=== PATIENT | male | born 1970 | race African-American/Black ===

== ENCOUNTER → 2023-09-26 09:24 | Outpatient (REF) | payer OTHER, SELFPAY | LOC: RAD 09:24 | PROVIDERS: ATTENDING PHYSICIAN Internal Medicine; FAMILY PHYSICIAN Internal Medicine; REFERRING PHYSICIAN Internal Medicine | DX: R07.89 Other chest pain (principal) | CPT/HCPCS: 74221 ==

== ENCOUNTER 2024-08-20 14:24 | Emergency (ER) | payer OTHER, SELFPAY ==
[2024-08-20 14:32] VITALS: BP 123/86
[2024-08-20 14:59] LABS: % Basophils 0.5 % (0-2); % Eosinophils 0.3 % (0-6); % Immature Granulocytes 0.2 % (0-0.5); % Lymphocytes 16.9 % (20.5-51.1); % Monocytes 8.3 % (1.7-9.3); % Neutrophils 73.8 % (42.2-75.2); Absolute Monocytes 0.5 10^3/uL (0.1-0.6); Absolute Neutrophils 4.5 10^3/uL (1.4-6.5); Hematocrit 42.7 % (39.0-52.0); Hemoglobin 14.3 g/dL (13.0-18.0); Mean Corp Hgb Conc. 33.5 g/dL (33.0-37.0); Mean Corpuscular Hgb 28.7 pg (27.0-31.0); Mean Corpuscular Volume 85.7 fL (80.0-94.0); Mean Platelet Volume 9.6 fL (7.4-10.4); Nucleated Red Blood Cells % 0 % (-); Platelet Count 179 10^3/uL (130-400); Red Blood Cell Count 4.98 10^6/uL (4.70-6.10); Red Cell Dist. Width 11.9 % (11.5-14.5); White Blood Cell Count 6.1 10^3/uL (4.8-10.8)
[2024-08-20 15:11] LABS: ALT (SGPT) 29 U/L (0-50); AST (SGOT) 29 U/L (17-59); Albumin 4.6 g/dl (3.5-5.0); Alkaline Phosphatase 54 U/L (38-126); Blood Urea Nitrogen 13 mg/dl (9-20); Calcium 8.9 mg/dl (8.4-10.2); Carbon Dioxide 33 mmol/L (22-30); Chloride 97 mmol/L (98-107); Glucose 91 mg/dl (70-99); Potassium 3.9 mmol/L (3.5-5.1); Sodium 136 mmol/L (135-145); Total Bilirubin 0.6 mg/dl (0.2-1.3); eGFR > 60.00
[2024-08-20 15:22] LABS: Troponin I < 0.012 ng/ml
[2024-08-20 15:49] LABS: Lipase 131 U/L (23-300)
--- NOTE | 2024-08-20 18:33 | ED.GENMED ---
History of Present Illness
General
Chief Complaint: Abdominal Symptoms
Source: patient
Exam Limitations: none
Time Seen by Provider: 08/20/24 18:11
Nursing documentation reviewed up to this point in time: agreed with
History of Present Illness
History of Present Illness:
Patient is a 53-year-old male with past medical history of LA, stent in 2019, reflux anxiety presents to the ER for evaluation. Patient reports on Saturday 5 days ago he had chest discomfort and a full cardiac workup at [facility].
He reports he did 2 cardiac troponins. He was on therapy today (in therapy for recent fall at work )and after therapy felt some heartburn and upper abdominal pain.he reports he felt some heartburn in his throat as well. He also felt some back
pain. He did take Pepcid and that seemed to relieve his symptoms. He does have a history reflux and is on pantoprazole as well. He admits that he is very anxious and did not want to ignore his symptoms which is why he presented to the ER.
Patient now feels a little heartburn.
He had no associated shortness of breath.
He has a medicine for high cholesterol anxiety in addition to his other reflux meds. He does not smoke and does not drink alcohol.
Review of Systems
Review of Systems
Allergies reviewed?: Yes
All Other Systems: ROS reviewed and negative except as documented in HPI and ROS
Constitutional: Reports no symptoms; Denies fever, fatigue or chills
Respiratory: Reports no symptoms
Cardiac: Reports chest pain; Denies palpitations or syncope
ABD/GI: Reports abdominal pain and other (upper abdominal burning ); Denies nausea, vomiting or diarrhea
: Reports no symptoms
Musculoskeletal: Reports no symptoms
Psychiatric: Reports no symptoms
Phy Exam
General Physical Exam
General Presentation: well appearing
General age: appears stated age
General Skin: warm and dry
General Habitus: normal
General Mental: alert
General Hydration: appears well hydrated
Cardiovascular Exam
Cardiovascular Exam: regular rate/rhythm, no murmur and normal peripheral pulses
Pulmonary Exam
Pulmonary Exam: lungs clear and no respiratory distress
Gastrointestinal Exam
Gastrointestinal Exam: non tender and soft
Neurological Exam
Neurological Exam: alert and oriented x3
Musculoskeletal Exam
Musculoskeletal Exam: full ROM
Skin Exam
Skin Exam: normal color and warm/dry
Psychiatric Exam
Psychiatric Exam: normal mood/affect
Course
Orders/Labs/Results
Orders:
Orders
08/20/24 14:37
Electrocardiogram (*1) Urgent
Reason for Study: Chest Pain
08/20/24 14:38
EKG- Treatment ONCE
08/20/24 14:45
Complete Blood Count/With Diff Urgent
Comprehensive Metabolic Panel Urgent
Lipase Urgent
Troponin I Urgent
08/20/24 18:56
Chest [CR Chest - 2 Views ] Urgent
Comment:
Reason For Exam: cp
US Abdomen Complete/Upper Urgent
Comment:
Reason For Exam: upper abd radha
08/20/24 19:18
Urinalysis Reflex To Culture Urgent
Date Specimen was Collected: 08/20/24
Time Specimen was Collected: 18:36
08/20/24 20:43
Mag Hydrox/Al Hydrox/Simeth [Maalox] 30 ml Phenobarb/Hyoscy/Atropine/Scop [] 10 ml PO NOW
08/20/24 21:03
Mag Hydrox/Al Hydrox/Simeth [Maalox] 30 ml .ROUTE .STK-MED ONE
Phenobarb/Hyoscy/Atropine/Scop [] 10 ml .ROUTE .STK-MED ONE
Abnormal Lab Results
08/20/24
14:45
Absolute Lymphs (auto) 1.0 L 10^3/uL
(1.2-3.4)
Lymphocytes % 16.9 L %
(20.5-51.1)
Chloride 97 L mmol/L
(98-107)
Carbon Dioxide 33 H mmol/L
(22-30)
08/20/24 14:45
08/20/24 14:45
Vital Signs
Initial and Last Documented VS:
Initial Vital Signs
Temp Pulse Resp BP Pulse Ox
98.5 F 75 16 123/86 97
08/20/24 14:32 08/20/24 14:32 08/20/24 14:32 08/20/24 14:32 08/20/24 14:32
Last Documented Vital Signs
Temp Pulse Resp BP Pulse Ox
98.2 F 66 20 129/89 96
08/20/24 20:35 08/20/24 21:07 08/20/24 21:07 08/20/24 21:07 08/20/24 21:07
MDM/Problems Addressed
Differential Diagnosis Includes:
Not limited to gastritis/GERD less likely unstable angina, less likely biliary colic
MDM/Problems Addressed:
As documented patient is a 53Y male with history of stent years ago presented for evaluation of chest discomfort which she describes as heartburn and upper abdominal discomfort. He however does admit to have a history of anxiety and is anxious
whenever he has anything in his chest because of his history of his cardiac disease. He was seen at [facility] several days ago and had a full cardiac workup for chest cardiac troponins he reports which were negative. Today he describes
this more as a but was concerned and presented to the ER. He presents awake alert no acute distress he is anxious however well-appearing no acute findings and EKG, cardiac troponin negative abdomen soft nontender however with patient's concern of
reflux and epigastric discomfort rating to chest he also felt in the back area ultrasound obtained results pending at this time. UA negative
If everything is negative we will plan for discharge home with outpatient follow-up. He already is on pantoprazole and saw by GI.
Patient did receive a GI cocktail and symptoms are improved no acute findings on ultrasound to review with patient mild diffuse liver disease on ultrasound importance of close outpatient follow-up with family doctor and GI specialist he has an
appoint with his PCP tomorrow.
Chronic conditions affecting care:
Reflux anxiety CAD
*Critical Care Note
Total Time (30-74mins, 75-104mins- exclusive of procedures): Not Applicable
ED Attending Note
-
Portions of this chart may have been created with voice recognition software.� Occasional wrong word or��sound alike� substitutions may have occurred due to the inherent limitations of voice recognition software.
Discharge Plan
Departure
Patient Disposition: Home (Routine Discharge)
Date of Disposition: 08/20/24
Time of Disposition: 21:34
Patient with high blood pressure during this ER visit?: Yes
Covid-19: Not Applicable
Discharge Problem:
GERD (gastroesophageal reflux disease)
Instructions: Acid reflux and GERD in adults, BLOOD PRESSURE
Prescriptions:
No Action
isosorbide mononitrate 30 mg Tablet Extended Release 24 Hr
30 mg PO DAILY
clopidogrel 75 mg Tablet
75 mg PO DAILY
aspirin 81 mg Tablet,Delayed Release (Dr/Ec)
81 mg PO DAILY
pantoprazole [Protonix] 40 mg Tablet,Delayed Release (Dr/Ec)
40 mg PO DAILY
modafinil 100 mg Tablet
100 mg PO AMHS
rosuvastatin 20 mg Tablet
20 mg PO HS
doxepin 3 mg Tablet
3 mg PO HS
valacyclovir
500 mg PO DAILY PRN (Reason: shingles)
Rx Instructions:
shingles
Referrals:
Vincent Pandey I., DO [Family Provider] -
Activity Restrictions/Additional Instructions:
Continue your reflux medication and follow-up with family doctor tomorrow as scheduled in addition please follow-up with a GI specialist. Follow up with your family doctor/GI specialist for further findings on your ultrasound as reviewed.
Interventions
Interventions:
*Risk Screen - Suicide Last Done: 08/20/24 14:32
*General Assessment Last Done: 08/20/24 14:32
*Neglect/Abuse Screening Last Done: 08/20/24 14:32
ED- Fall Risk Assessment Last Done: 08/20/24 18:40
*ED COVID-19 Vaccine History Last Done: 08/20/24 14:32
BT-Fhzwhl-Hbqdxhrorb Assessment Last Done: 08/20/24 18:40
Discharge Date and Time
Print Language: SUDANESE
[2024-08-20 18:38] VITALS: BP 127/89
[2024-08-20 19:23] LABS: Urine Albumin Negative (Neg - Trace); Urine Bilirubin Negative (Negative); Urine Character Clear (Clear); Urine Color Yellow; Urine Glucose Negative (Negative); Urine Ketone Negative (Negative); Urine Leukocyte Negative (Negative); Urine Nitrite Negative (Negative); Urine Occult Blood Negative (Negative); Urine Urobilinogen Negative (Neg - 1+)
[2024-08-20 20:35] VITALS: BP 129/86
[2024-08-20] MEDS: MAALOX 40 PO (21:04)
[2024-08-20 21:07] VITALS: BP 129/89
== END 2024-08-20 21:30 | disposition home or self-care (01) ==
LOC: EMR 14:24
PROVIDERS: Emergency Medicine; EMERGENCY PHYSICIAN Student in an Organized Health Care Education/Training Program; FAMILY PHYSICIAN Internal Medicine
DX: K21.9 Gastro-esophageal reflux disease without esophagitis (principal); I25.2 Old myocardial infarction; E78.00 Pure hypercholesterolemia, unspecified; F41.9 Anxiety disorder, unspecified; I25.10 Atherosclerotic heart disease of native coronary artery without angina pectoris; Z95.5 Presence of coronary angioplasty implant and graft
CPT/HCPCS: 99284; 71046; 76700; 80053; 81003; 83690; 84484; 85025; 93005

== ENCOUNTER 2024-08-25 22:46 | Emergency (ER) | payer OTHER, SELFPAY ==
[2024-08-25 22:48] VITALS: BP 154/100
[2024-08-25 23:13] LABS: % Basophils 0.7 % (0-2); % Immature Granulocytes 0.2 % (0-0.5); % Lymphocytes 27.7 % (20.5-51.1); % Monocytes 9.2 % (1.7-9.3); % Neutrophils 61.2 % (42.2-75.2); Absolute Eosinophils 0.1 10^3/uL (0-0.7); Absolute Lymphocytes 1.6 10^3/uL (1.2-3.4); Absolute Monocytes 0.5 10^3/uL (0.1-0.6); Absolute Neutrophils 3.5 10^3/uL (1.4-6.5); Hematocrit 44.1 % (39.0-52.0); Hemoglobin 14.3 g/dL (13.0-18.0); Mean Corp Hgb Conc. 32.4 g/dL (33.0-37.0); Mean Corpuscular Volume 86.5 fL (80.0-94.0); Mean Platelet Volume 9.6 fL (7.4-10.4); Nucleated Red Blood Cells % 0 % (-); Platelet Count 176 10^3/uL (130-400); Red Cell Dist. Width 11.9 % (11.5-14.5); White Blood Cell Count 5.8 10^3/uL (4.8-10.8)
[2024-08-25 23:26] LABS: ALT (SGPT) 27 U/L (0-50); AST (SGOT) 30 U/L (17-59); Albumin 4.7 g/dl (3.5-5.0); Alkaline Phosphatase 58 U/L (38-126); Blood Urea Nitrogen 15 mg/dl (9-20); Carbon Dioxide 32 mmol/L (22-30); Chloride 96 mmol/L (98-107); Glucose 97 mg/dl (70-99); Lipase 153 U/L (23-300); Potassium 3.6 mmol/L (3.5-5.1); Sodium 136 mmol/L (135-145); Total Bilirubin 0.4 mg/dl (0.2-1.3); Total Protein 8.2 g/dl (6.3-8.2); eGFR > 60.00
[2024-08-25 23:36] LABS: Troponin I < 0.012 ng/ml
[2024-08-26 01:04] VITALS: BP 132/92
--- NOTE | 2024-08-26 01:43 | ED.GENMED ---
History of Present Illness
<SHWETA Rosen - Last Filed: 08/26/24 03:05>
General
Chief Complaint: Abdominal Symptoms
Source: patient
Exam Limitations: none
Time Seen by Provider: 08/26/24 01:32
History of Present Illness
History of Present Illness:
This is a 53 year old male that comes in with c/o epigastric and right sided upper abd pain. States that he has been to [facility] twice and here twice for the same thing. States that ht has this right sided lower chest pain that goes around to his
side. States that this started on the and he has not had a good stool since that time. States that at first it was diarrhea and now it is soft stool. States that he had a CT scan on August 22 and he also had an US done here. States that he
saw his GI specialist today and he is having an Endoscopy on Saturday. States that she also increased his Pantoprazole to 40mg BID. Denies any fever, chills, chest pain, SOB, nausea, vomiting, diarrhea, headache, dizziness,urinary burning.
Past History
<SHWETA Rosen - Last Filed: 08/26/24 03:05>
Past History
ED Past Medical History: GERD, Hypercholesterolemia, [place], Psychiatric (Anxiety, ) and Other (narcolepsy, )
ED Past Surgical History: Cardiac (Stent), Orthopedic (Left wrist surgery, ) and Other (Cyst on the neck removed, )
Social History
Tobacco: Non-smoker
Alcohol: None
Personal: Single
Living: alone
Review of Systems
<SHWETA Rosen - Last Filed: 08/26/24 03:05>
Review of Systems
All Other Systems: ROS reviewed and negative except as documented in HPI and ROS
Constitutional: Reports no symptoms; Denies fever or chills
EENT: Reports no symptoms
Respiratory: Reports no symptoms; Denies cough or trouble breathing
Cardiac: Reports no symptoms; Denies chest pain
ABD/GI: Reports abdominal pain; Denies nausea, vomiting or diarrhea
: Reports no symptoms; Denies dysuria, frequency or urgency
Musculoskeletal: Reports no symptoms
Skin: Reports no symptoms
Neurological: Reports no symptoms; Denies dizzy or headache
Psychiatric: Reports no symptoms
Phy Exam
<SHWETA Rosen - Last Filed: 08/26/24 03:05>
General Physical Exam
General Presentation: well appearing and no apparent distress
General age: appears stated age
General Skin: warm and dry
General Habitus: normal
General Mental: alert and anxious
General Hydration: appears well hydrated
ENT Exam
ENT Exam: TM's normal, pharynx normal and neck supple
Eye Exam
Eye Exam: EOMI
Cardiovascular Exam
Cardiovascular Exam: regular rate/rhythm, no edema, no murmur and normal peripheral pulses
Pulmonary Exam
Pulmonary Exam: lungs clear, no respiratory distress, no rales, chest non tender, no crackles, no rhonchi, no wheezing and no cough
Gastrointestinal Exam
Gastrointestinal Exam: normal bowel sounds, soft, no organomegaly, no pulsatile mass, non distended and tender (Slight Epigastric tenderness with palpation)
Musculoskeletal Exam
Musculoskeletal Exam: full ROM and no edema
Skin Exam
Skin Exam: normal color, warm/dry, no rash and no petechia
Psychiatric Exam
Psychiatric Exam: anxious
Course
<SHWETA Rosen - Last Filed: 08/26/24 03:05>
Orders/Labs/Results
Orders:
Orders
08/25/24 22:54
Electrocardiogram (*1) Urgent
Reason for Study: Abdominal Pain
EKG- Treatment ONCE
IV Insert/Care/Rem.- Treatment PRN
08/25/24 23:07
Complete Blood Count/With Diff Urgent
Comprehensive Metabolic Panel Urgent
Lipase Urgent
Troponin I Urgent
08/26/24 01:42
Sucralfate Suspension [Carafate Suspension] 1 gm PO NOW STA
08/26/24 02:26
D-Dimer Urgent
Abnormal Lab Results
08/25/24
23:07
MCHC 32.4 L g/dL
(33.0-37.0)
Chloride 96 L mmol/L
(98-107)
Carbon Dioxide 32 H mmol/L
(22-30)
08/25/24 23:07
08/25/24 23:07
Hypochloremia, carbon dioxide elevation. Troponin <0.012, Lipase normal at 153
D-dimer 0.39
Vital Signs
Initial and Last Documented VS:
Initial Vital Signs
Pulse Resp BP Pulse Ox
67 18 154/100 98
08/25/24 22:48 08/25/24 22:48 08/25/24 22:48 08/25/24 22:48
Last Documented Vital Signs
Temp Pulse Resp BP Pulse Ox
98.4 F 61 20 132/92 97
08/26/24 01:04 08/26/24 01:04 08/26/24 01:04 08/26/24 01:04 08/26/24 01:04
Uchelt;Behzad Mosqueda, DO - Last Filed: 08/26/24 03:05>
Orders/Labs/Results
Orders:
Orders
08/25/24 22:54
Electrocardiogram (*1) Urgent
Reason for Study: Abdominal Pain
EKG- Treatment ONCE
IV Insert/Care/Rem.- Treatment PRN
08/25/24 23:07
Complete Blood Count/With Diff Urgent
Comprehensive Metabolic Panel Urgent
Lipase Urgent
Troponin I Urgent
08/26/24 01:42
Sucralfate Suspension [Carafate Suspension] 1 gm PO NOW STA
08/26/24 02:26
D-Dimer Urgent
Abnormal Lab Results
08/25/24
23:07
MCHC 32.4 L g/dL
(33.0-37.0)
Chloride 96 L mmol/L
(98-107)
Carbon Dioxide 32 H mmol/L
(22-30)
08/25/24 23:07
08/25/24 23:07
Vital Signs
Initial and Last Documented VS:
Initial Vital Signs
Pulse Resp BP Pulse Ox
67 18 154/100 98
08/25/24 22:48 08/25/24 22:48 08/25/24 22:48 08/25/24 22:48
Last Documented Vital Signs
Temp Pulse Resp BP Pulse Ox
98.4 F 61 20 132/92 97
08/26/24 01:04 08/26/24 01:04 08/26/24 01:04 08/26/24 01:04 08/26/24 01:04
<SHWETA Rosen - Last Filed: 08/26/24 03:05>
MDM/Problems Addressed
Differential Diagnosis Includes:
GERD,
MDM/Problems Addressed:
This is a 53 year old male that comes in with c/o epigastric pain that goes around to the right. Patient has had CT and US done and he also saw his GI specialist today. Patient is scheduled for Endoscopy on Saturday. States that he also has slips for
out patient labs and stool.
Will check labs, give Carafate.
Back into see patient. Patient states that he just feels that whatever this is it is just moving through his intestines as he feels like it is winding around. States that his discomfort moves from side to Side. Encourage patient to get his lab
testing as ordered by his GI specialist. States that he will go to [facility] in the morning and given his stool specimen. Explained that this is the best way as it will then go to his GI specialist. Patient to return with any concerns.
Chronic conditions affecting care:
GERD
Chronic conditions affecting care: Psychiatric illness (Anxiety)
Acute Exacerbation and/or Progression of Chronic Illness:
GERD
<SHWETA Rosen - Last Filed: 08/26/24 03:05>
*Pulse Oximetry
Patient hypoxic: no
*EKG
Interpreted by ED Provider?: Yes
Heart Rate: 65
Rate: normal
Rhythm: sinus
[place]: normal axis
Interval: normal interval
QRS Pattern: normal QRS
Ischemia: no ischemia
*Senior Technical Support Engineer Interpretation
Rate: Senior Technical Support Engineer- N/A
*Critical Care Note
Total Time (30-74mins, 75-104mins- exclusive of procedures): Not Applicable
ED Attending Note
<SHWETA Rosen - Last Filed: 08/26/24 03:05>
-
Portions of this chart may have been created with voice recognition software.� Occasional wrong word or��sound alike� substitutions may have occurred due to the inherent limitations of voice recognition software.
<Behzad Mosqueda DO - Last Filed: 08/26/24 03:05>
ED Attending Note
Patient seen and examined by attending physician: Yes
ED Attending Note:
53-year-old male presents emergency department with abdominal pain that has been going on for months. he has been seen by his aviation electronic warfare operator many times including today. Patient has been to multiple hospitals and seen by 2 different
gastroenterology groups recently. He states that he has had multiple studies.He is due for an endoscopy on Saturday. He has outpatient labs pending. Patient was seen in conjunction with the nurse practitioner I have reviewed and agree with her
history and treatment plan. Patient to be discharged. He is in no acute distress. He states that his stomach is grumbling. Skin is warm and dry. Mentating appropriately. Patient to be discharged with close follow-up with GI.
Discharge Plan
Departure
Patient Disposition: Home (Routine Discharge)
Date of Disposition: 08/26/24
Time of Disposition: 03:03
Patient with high blood pressure during this ER visit?: Yes
Condition: Good
Covid-19: Not Applicable
Discharge Problem:
GERD (gastroesophageal reflux disease)
Instructions: Acid reflux and GERD in adults, BLOOD PRESSURE
Prescriptions:
No Action
isosorbide mononitrate 30 mg Tablet Extended Release 24 Hr
30 mg PO DAILY
clopidogrel 75 mg Tablet
75 mg PO DAILY
aspirin 81 mg Tablet,Delayed Release (Dr/Ec)
81 mg PO DAILY
pantoprazole [Protonix] 40 mg Tablet,Delayed Release (Dr/Ec)
40 mg PO DAILY
modafinil 100 mg Tablet
100 mg PO AMHS
rosuvastatin 20 mg Tablet
20 mg PO HS
doxepin 3 mg Tablet
3 mg PO HS
valacyclovir
500 mg PO DAILY PRN (Reason: shingles)
Rx Instructions:
shingles
Referrals:
Vincent Pandey I., DO [Family Provider] - Call in 1-3 days for appt
Activity Restrictions/Additional Instructions:
As discussed, your blood work is normal. You have had CT scan and Ultrasounds done that are normal. You are scheduled for an Endoscopy on Saturday. Please keep this appointment. Continue with your Pantoprazole as ordered. IF YOU HAVE ANY OTHER
CONCERNS PLEASE RETURN TO THE EMERGENCY ROOM.
Interventions
Interventions:
*Risk Screen - Suicide Last Done: 08/25/24 22:48
*General Assessment Last Done: 08/25/24 22:48
*Neglect/Abuse Screening Last Done: 08/25/24 22:48
*ED COVID-19 Vaccine History Last Done: 08/25/24 22:48
Discharge Date and Time
Print Language: CITIZEN OF [place]
[2024-08-26] MEDS: CARAFATE SUSPENSION 1 GM PO (01:48)
[2024-08-26 02:50] LABS: D-Dimer 0.39 ug/mlFEU (0.00-0.50)
[2024-08-26 03:16] VITALS: BP 120/91
== END 2024-08-26 03:18 | disposition home or self-care (01) ==
LOC: EMR 22:46
PROVIDERS: Clinical Nurse Specialist Family Health; EMERGENCY PHYSICIAN Student in an Organized Health Care Education/Training Program; FAMILY PHYSICIAN Internal Medicine
DX: R10.11 Right upper quadrant pain (principal); R07.89 Other chest pain; K21.9 Gastro-esophageal reflux disease without esophagitis; E78.00 Pure hypercholesterolemia, unspecified; I25.2 Old myocardial infarction; F41.9 Anxiety disorder, unspecified; G47.419 Narcolepsy without cataplexy; E87.8 Other disorders of electrolyte and fluid balance, not elsewhere classified; Z95.5 Presence of coronary angioplasty implant and graft
CPT/HCPCS: 99283; 80053; 83690; 84484; 85025; 85379; 93005

== ENCOUNTER 2024-08-29 11:51 | Emergency (ER) | payer OTHER, SELFPAY ==
[2024-08-29 11:53] VITALS: BP 139/94
--- NOTE | 2024-08-29 14:56 | ED.GENMED ---
History of Present Illness
General
Chief Complaint: Anxiety
Source: patient
Exam Limitations: none
Time Seen by Provider: 08/29/24 14:55
Nursing documentation reviewed up to this point in time: agreed with
History of Present Illness
History of Present Illness:
This a 53-year-old male with past medical history of GERD, coronary artery disease, anxiety disorder presents emergency department today with concerns of a transient episode of panic symptoms. Patient states that he was going to get his car work
from today when he was waiting for his car and felt a sudden onset of anxiety, heart palpitations, lightheadedness, and he did feel sweaty. Patient states that he has had panic attacks recently. Patient states that he has had persistent abdominal
pain and is currently being worked up by community health outreach worker with [facility]. Patient states that the lack of clear diagnosis and his persistent symptoms have given him anxiety. Patient is never seen a psychiatrist for these symptoms. Patient is
not had to take any anxiety medication. Patient states that he had a heart attack in the past and states that at that time, he did have similar symptoms of tachycardia and was concerned that he may be having a heart attack. Denies fainting spells,
syncopal episodes. Patient states that when he gets this way, he will take deep breaths and is usually will calm him down and resolve the symptoms however patient states that his persistent symptoms persistent while longer than they usually do and
so he decided to report to the emergency department. While here in the emergency department, he not have recurrence of his symptoms and he currently denies any chest pain shortness of breath any dizziness any lightheadedness.
Past History
Past History
ED Past Medical History: GERD, Hypercholesterolemia, GA, Psychiatric (Anxiety, ) and Other (narcolepsy, )
ED Past Surgical History: Cardiac (Stent), Orthopedic (Left wrist surgery, ) and Other (Cyst on the neck removed, )
Social History
Tobacco: Non-smoker
Alcohol: None
Personal: Single
Living: alone
Review of Systems
Review of Systems
All Other Systems: ROS reviewed and negative except as documented in HPI and ROS
Phy Exam
Physical Exam
Physical Exam:
General: Patient is well appearing and in no acute distress; non-toxic
Skin: Warm and dry, no rashes or lesions
Head: Normocephalic, atraumatic
Eyes: Sclera non-icteric. EOMs intact.
Cardiac: Regular rate and rhythm, no murmurs
Peripheral Vascular: No lower extremity swelling or edema
Pulm: Normal respiratory effort
Abdomen: No abdominal tenderness to palpation
Neuro: CN II-XII intact, no focal neurologic deficits.
Psychiatric: Appropriate mood and affect.
Course
Orders/Labs/Results
Orders:
Orders
08/29/24 14:56
Electrocardiogram (*1) Urgent
Reason for Study: Palpitations
EKG- Treatment ONCE
08/29/24 15:26
EKG [Electrocardiogram (*1)] Urgent
Reason for Study: Palpitations
08/29/24 15:27
EKG- Treatment ONCE
08/29/24 15:43
Complete Blood Count/With Diff Urgent
Comprehensive Metabolic Panel Urgent
TSH Reflex To Free T4 Urgent
Troponin I Urgent
08/29/24 17:12
Electrocardiogram (*1) Urgent
Reason for Study: Palpitations
08/29/24 17:53
Troponin I Urgent
08/29/24 18:10
EKG- Treatment ONCE
Abnormal Lab Results
08/29/24
15:43
MCHC 32.9 L g/dL
(33.0-37.0)
Absolute Lymphs (auto) 1.1 L 10^3/uL
(1.2-3.4)
Lymphocytes % 19.0 L %
(20.5-51.1)
Monocytes % 9.4 H %
(1.7-9.3)
Carbon Dioxide 31 H mmol/L
(22-30)
Glucose 103 H mg/dl
(70-99)
Total Protein 8.4 H g/dl
(6.3-8.2)
08/29/24 15:43
08/29/24 15:43
Vital Signs
Initial and Last Documented VS:
Initial Vital Signs
Temp Pulse Resp BP Pulse Ox
98.3 F 66 16 139/94 96
08/29/24 11:53 08/29/24 11:53 08/29/24 11:53 08/29/24 11:53 08/29/24 11:53
Last Documented Vital Signs
Temp Pulse Resp BP Pulse Ox
98.3 F 57 16 131/80 98
08/29/24 11:53 08/29/24 15:31 08/29/24 11:53 08/29/24 15:31 08/29/24 15:31
MDM/Problems Addressed
Differential Diagnosis Includes:
see below
MDM/Problems Addressed:
Differential diagnosis includes ACS, panic attack, hyperthyroidism, electrolyte derangement:
53-year-old male with past medical of GERD, hypertension, coronary artery disease coming [facility] emergency department with concerns of a panic attack. Patient reports that he was running errands today when he got sudden onset of his panic
symptoms. He states that his heart was racing at the time. He states that he is concerned because the symptoms he had were similar 18 had a heart attack. He currently any chest pain. His symptoms resolved upon arrival to emergency department he
has been asymptomatic here. He is well-appearing on exam no acute distress heart regular rate and rhythm with no murmurs, no tenderness outpatient external chest wall, no abdominal tenderness. He had 2 EKGs which showed sinus bradycardia with no
ischemic changes gated to undetectable troponins. Doubt ACS. Suspect panic attack. Patient states he is never seen a psychiatrist for his issue. Patient states that his ongoing undiagnosed gastrointestinal issues are causing anxiety. Patient
has a EGD scheduled coming up. Patient stable for discharge.
Chronic conditions affecting care:
CAD, HTN, HLP
*Pulse Oximetry
Patient hypoxic: no
*EKG
Interpreted by ED Provider?: Yes
EKG Intrepretation Date: 08/29/24
Interpretation: normal
Comparison EKG: no changes
Heart Rate: 52
Rate: bradycardiac
Rhythm: sinus
[place]: normal axis
Interval: normal interval
QRS Pattern: normal QRS
Ischemia: no ischemia
*Critical Care Note
Total Time (30-74mins, 75-104mins- exclusive of procedures): Not Applicable
Data Reviewed
Review of Other/Old Records Reveals: Records (reviewed ER physician documentation from 08/26/24, 08/20/24)
Source: patient and records
Patient Management
Escalation/DeEscalation of care consider admission/obs:
case reviewed with my attending
patient stable for discharge
ED Attending Note
-
Portions of this chart may have been created with voice recognition software.� Occasional wrong word or��sound alike� substitutions may have occurred due to the inherent limitations of voice recognition software.
Discharge Plan
Departure
Patient Disposition: Home (Routine Discharge)
Date of Disposition: 08/29/24
Time of Disposition: 18:41
Patient with high blood pressure during this ER visit?: Yes
Condition: Good
Discharge Problem:
Palpitations, Anxiety
Instructions: Panic Disorder (DC), Palpitations, BLOOD PRESSURE
Prescriptions:
No Action
isosorbide mononitrate 30 mg Tablet Extended Release 24 Hr
30 mg PO DAILY
clopidogrel 75 mg Tablet
75 mg PO DAILY
aspirin 81 mg Tablet,Delayed Release (Dr/Ec)
81 mg PO DAILY
pantoprazole [Protonix] 40 mg Tablet,Delayed Release (Dr/Ec)
40 mg PO DAILY
modafinil 100 mg Tablet
100 mg PO AMHS
rosuvastatin 20 mg Tablet
20 mg PO HS
doxepin 3 mg Tablet
3 mg PO HS
valacyclovir
500 mg PO DAILY PRN (Reason: shingles)
Rx Instructions:
shingles
Referrals:
Vincent Pandey I., DO [Family Provider] -
Activity Restrictions/Additional Instructions:
Please follow up with your primary care provider
PLEASE RETURN TO EMERGENCY DEPARTMENT SHOULD YOU EXPERIENCE SHORTNESS OF BREATH, CHEST PAIN, DIZZINESS, LIGHTHEADEDNESS, FEVERS OR CHILLS, INTRACTABLE NAUSEA VOMITING, OR ANY OTHER SIGNS OR SYMPTOMS CONCERNING TO YOU.
Interventions
Interventions:
*Risk Screen - Suicide Last Done: 08/29/24 11:53
*General Assessment Last Done: 08/29/24 18:44
*Neglect/Abuse Screening Last Done: 08/29/24 11:53
ED- Fall Risk Assessment Last Done: 08/29/24 18:44
*ED COVID-19 Vaccine History Last Done: 08/29/24 18:44
*Nursing Disposition Last Done: 08/29/24 18:44
ED-Psychological Assessment Last Done: 08/29/24 15:47
Discharge Date and Time
Discharge Date/Time: 08/29/24 18:45
Print Language: GUATEMAL[place]
[2024-08-29 15:31] VITALS: BP 131/80
[2024-08-29 16:00] LABS: % Basophils 0.7 % (0-2); % Eosinophils 0.3 % (0-6); % Immature Granulocytes 0.2 % (0-0.5); % Monocytes 9.4 % (1.7-9.3); % Neutrophils 70.4 % (42.2-75.2); Absolute Lymphocytes 1.1 10^3/uL (1.2-3.4); Absolute Monocytes 0.6 10^3/uL (0.1-0.6); Absolute Neutrophils 4.1 10^3/uL (1.4-6.5); Hematocrit 41.3 % (39.0-52.0); Hemoglobin 13.6 g/dL (13.0-18.0); Mean Corp Hgb Conc. 32.9 g/dL (33.0-37.0); Mean Corpuscular Hgb 28.5 pg (27.0-31.0); Mean Corpuscular Volume 86.4 fL (80.0-94.0); Mean Platelet Volume 9.8 fL (7.4-10.4); Nucleated Red Blood Cells % 0 % (-); Platelet Count 170 10^3/uL (130-400); Red Blood Cell Count 4.78 10^6/uL (4.70-6.10); Red Cell Dist. Width 11.9 % (11.5-14.5); White Blood Cell Count 5.9 10^3/uL (4.8-10.8)
[2024-08-29 16:05] LABS: ALT (SGPT) 22 U/L (0-50); AST (SGOT) 25 U/L (17-59); Albumin 4.9 g/dl (3.5-5.0); Alkaline Phosphatase 61 U/L (38-126); Blood Urea Nitrogen 16 mg/dl (9-20); Calcium 9.3 mg/dl (8.4-10.2); Carbon Dioxide 31 mmol/L (22-30); Chloride 100 mmol/L (98-107); Glucose 103 mg/dl (70-99); Potassium 4.8 mmol/L (3.5-5.1); Sodium 139 mmol/L (135-145); Total Bilirubin 0.7 mg/dl (0.2-1.3); Total Protein 8.4 g/dl (6.3-8.2); eGFR > 60.00
[2024-08-29 16:17] LABS: Troponin I < 0.012 ng/ml
[2024-08-29 18:27] LABS: Troponin I < 0.012 ng/ml
== END 2024-08-29 18:45 | disposition home or self-care (01) ==
LOC: EMR 11:51
PROVIDERS: Physician Assistant; EMERGENCY PHYSICIAN Emergency Medicine; FAMILY PHYSICIAN Internal Medicine
DX: R00.2 Palpitations (principal); F41.9 Anxiety disorder, unspecified; I25.2 Old myocardial infarction; K21.9 Gastro-esophageal reflux disease without esophagitis; E78.00 Pure hypercholesterolemia, unspecified; I25.10 Atherosclerotic heart disease of native coronary artery without angina pectoris; I10 Essential (primary) hypertension; Z95.5 Presence of coronary angioplasty implant and graft
CPT/HCPCS: 99284; 80053; 84443; 84484; 85025; 93005